=== PATIENT | male | born 2000 | race Hispanic/Latino ===

== ENCOUNTER 2022-11-21 18:47 | Emergency (ER) | payer BC, SELFPAY ==
[2022-11-21] VITALS (13 sets, daily range): BP systolic 141–181; BP diastolic 77–111; PULSE 85–118; RESP 16–31; TEMP 37.8; O2SAT 97–100
--- NOTE | ~2022-11-21 | XR_ITS ---
XR chest 2V DATE: 11/21/2022 19:34 INDICATION: Chest pain, shortness of breath TECHNIQUE: PA and lateral views COMPARISON: None FINDINGS: Normal heart size. No hilar or mediastinal enlargement. No pulmonary infiltrate or consolid ation, pleural effusion or pulmonary vascular congestion or pneumothorax. IMPRESSION: Negative Reviewed, dictated and finalized at location A. TAL INSPECTOR IMPRESSION: Negative
--- NOTE | 2022-11-21 18:55 | ECG_ITS ---
Measurements Intervals [place] Rate: 107 P: 39 ND: 180 QRS: 51 QRSD: 98 T: 34 QT: 319 QTc: 426 Interpretive Statements SINUS TACHYCARDIA OTHERWISE NORMAL ECG NO PREVIOUS ECG AVAILABLE FOR COMPARISON Electronically Signed On 11-21-2022 20:11:07 MAINTENANCE AND ENGINEERING MANAGER by Sam Owens M.D.
[2022-11-21 19:26] LABS: Basophils Absolute Auto 0.1 K/mm3 (0.0-0.1); Basophils Percent Auto 0.7 % (0.2-1.2); Eosinophils Absolute Auto 0.1 K/mm3 (0-0.3); Eosinophils Percent Auto 1.3 % (0-4.4); Hematocrit 46.2 % (42.0-52.0); Hemoglobin 15.6 g/dL (14.0-18.0); Immature Granulocyte Absolute 0.02 K/mm3 (0.00-0.031); Immature Granulocyte Percent A 0.2 % (0-0.5); Lymphocytes Absolute Auto 2.49 K/mm3 (0.9-3.2); Lymphocytes Percent Auto 27.7 % (18.3-44.2); Mean Corpuscular HGB Conc 33.8 g/dl (32-36); Mean Corpuscular Hemoglobin 28.4 pg (26-34); Mean Platelet Volume 10.2 fl (7.4-10.4); Monocytes Absolute Auto 0.7 K/mm3 (0.1-0.6); Monocytes Percent Auto 7.5 % (2.6-8.5); Neutrophils Absolute Auto 5.6 K/mm3 (1.3-6.7); Neutrophils Percent Auto 62.6 % (45.5-73.1); Platelet Count Result 278 k/mm3 (150-375); Red Cell Distribution Width 12.5 % (11.5-14.5)
[2022-11-21 19:36] LABS: Alanine Aminotransferase 49 U/L (6-50); Albumin Level 4.9 g/dL (3.5-5.1); Alkaline Phosphatase 78 U/L (38-126); Anion Gap 8 mmol/L (8-16); Aspartate Amino Transferase 38 U/L (17-59); Bilirubin,Total 0.5 mg/dL (0.2-1.3); Blood Urea Nitrogen 14 mg/dL (9-20); Calcium 9.3 mg/dL (8.4-10.2); Carbon Dioxide 30 mmol/L (22-30); Chloride 99 mmol/L (98-107); Estimated CRCL calculation 142 ml/min; Estimated Glomerular Filt Rate > 60; Glucose 99 mg/dL (65-110); Lipase 71 U/L (23-300); Potassium 3.9 mmol/L (3.4-5.0); Sodium 137 mmol/L (137-145)
[2022-11-21 19:47] LABS: Troponin I < 0.012 ng/mL (0.000-0.034)
[2022-11-21 20:00] LABS: INR 1.1; Partial Thromboplastin Time 29.8 SECONDS (22.3-36.8); Prothrombin Time 13.6 Seconds (11.1-14.7)
--- NOTE | 2022-11-21 21:48 | ED.CHESTPAIN ---
HPI - Chest Pain General Chief Complaint: Chest Pain Stated Complaint: chest pain Time Seen by Provider: 11/21/22 21:20 History of Present Illness HPI narrative: Patient is a 22-year-old male here for evaluation of chest pain and shortness of breath of the past 3 days. Patient states that he become short of breath when exerting himself. Also notes cough. Pain is a stabbing sensation, coming at random and lasting seconds at a time before resolving without intervention. Denies history of previous similar sensation. Wanted to be checked out because of his family history of cardiac disease. No leg swelling, fevers or chills, nausea or vomiting, abdominal pain, palpitations. Related Data Home Medications Medication Instructions Recorded Confirmed omeprazole 20 mg capsule,delayed 20 mg PO BID 01/13/22 01/13/22 release Allergies Allergy/AdvReac Type Severity Reaction Status Date / Time No Known Allergies Allergy Verified 01/13/22 14:38 Review of Systems Review of Systems: Gen: Denies fevers or chills Eyes: Denies eye pain or visual change ENT: Denies congestion Respiratory: Reports shortness of breath CV: Reports chest pain GI: Denies abdominal pain nausea, emesis or diarrhea : denies burning, urgency, frequency or hematuria Musculoskeletal: Denies back pain or muscle pain Neuro: Denies numbness, tingling, weakness or focal weakness Skin: Denies rash Except as documented, all other systems reviewed and negative [facility] Past Medical History Medical History Depression Family History Family History Father Hypertension Family history of cardiovascular disease Mother Family history of elevated blood lipids Social History Social History Second hand tobacco smoke exposure: No Alcohol intake: never Substance use: never Substance use type: does not use Course Vital Signs Vital signs: Vital Signs Temperature 100.0 F H 11/21/22 18:53 Pulse Rate 118 H 11/21/22 18:53 Respiratory Rate 18 11/21/22 18:53 Blood Pressure 158/111 H 11/21/22 18:53 Pulse Oximetry 100 11/21/22 18:53 Oxygen Delivery Room Air 11/21/22 18:53 Temperature 98.1 F 11/22/22 00:18 Pulse Rate 79 11/22/22 00:18 Respiratory Rate 18 11/22/22 00:18 Blood Pressure 110/74 11/22/22 00:18 Pulse Oximetry 98 11/22/22 00:18 Oxygen Delivery Room Air 11/21/22 18:53 MDM - Chest Pain MDM Narrative Medical decision making narrative: 22-year-old male here for evaluation of chest pain, shortness of breath over the past several days. Patient is nontoxic-appearing although he is tachycardic to 118 and does have a low-grade temp at 100.0 upon arrival to the ED. Patient did not know he had a fever and is asymptomatic from this. Heart lungs are clear to auscultation, no leg swelling on exam. COVID and flu are negative. EKG and troponin are nonischemic. Chest x-ray is clear. D-dimer is negative, doubt PE. Patient was given fluids and Tylenol in the ED with improvement of his symptoms and vital signs. Patient does have a history of anxiety which he thinks is making his symptoms worse. He likely has a viral syndrome as the underlying cause given his low-grade temp on arrival. He will be discharged home to follow-up with his primary care doctor, return precautions discussed and he voiced understanding. Lab Data 11/21/22 19:14 11/21/22 19:15 Labs: Lab Results 11/21/22 11/21/22 11/21/22 Range/Units 19:10 19:14 19:14 WBC 9.0 (4.5-10.0) K/mm3 RBC 5.50 (4.6-6.20) M/mm3 Hgb 15.6 (14.0-18.0) g/dL Hct 46.2 (42.0-52.0) % MCV 84.0 (80-100) fl MCH 28.4 (26-34) pg MCHC 33.8 (32-36) g/dl RDW 12.5 (11.5-14.5) % Plt Count 278 (150-375) k/mm3 MPV 10.2 (7.4-10.4
[2022-11-21 21:50] LABS: D Dimer 0.31 ug/mL (<0.48)
[2022-11-21] MEDS: SODIUM CHLORIDE 0.9% IV 1,000 ML 999 ML IV CONT (23:17)
[2022-11-21] MEDS: ACETAMINOPHEN 500 MG TABLET 1000 MG PO (23:41)
[2022-11-21 23:59] LABS: Influenza A QL RT-PCR Negative (Negative); Influenza B QL RT-PCR Negative (Negative); SARS-CoV-2 RNA PCR Negative
[2022-11-22] VITALS: PULSE 89; RESP 15; O2SAT 97
[2022-11-22 00:01] VITALS: BP 147/76; PULSE 83; RESP 25; O2SAT 96
[2022-11-22 00:18] VITALS: BP 110/74; PULSE 79; RESP 18; TEMP 36.7; O2SAT 98
== END 2022-11-22 00:20 | disposition home or self-care (01) ==
PROVIDERS: Emergency Medicine; Emergency Provider Physician Assistant; PCP Family Medicine
DX: B34.9 Viral infection, unspecified (principal); Z20.822 Contact with and (suspected) exposure to COVID-19; F41.9 Anxiety disorder, unspecified; R00.0 Tachycardia, unspecified
CPT/HCPCS: 36415; 71046; 80053; 83690; 84484; 85025; 85380; 85610; 85730; 87636; 93005; 96360; 99284; A9270; J7030

== ENCOUNTER 2024-11-11 14:08 | Emergency (ER) | payer BC, SELFPAY ==
[2024-11-11 14:17] VITALS: BP 150/94; PULSE 98; RESP 18; TEMP 36.4; O2SAT 100
--- NOTE | 2024-11-11 14:19 | ED_ITS ---
HPI - Ear Problem General Chief complaint: Ear Stated complaint: Ear wax removal Time Seen by Provider: 11/11/24 14:20 Source: patient Mode of arrival: ambulatory Limitations: no limitations History of Present Illness HPI Narrative: 24-year-old male presented for complaint of right ear is clogged. He states he needs the ear cleaned out. Denies tinnitus, dizziness, ear pain, nausea vomiting. Has attempted to use Debrox and hydrogen peroxide without relief. MD Complaint: ear pain Related Data Home Medications ?Medication ?Instructions ?Recorded ?Confirmed ?Last Taken ?Type omeprazole 20 mg capsule,delayed 20 mg PO BID 01/13/22 02/10/24 Unknown History release cetirizine 10 mg tablet (24Hour 10 mg PO DAILY 11/11/24 Unknown History Allergy) Allergies Allergy/AdvReac Type Severity Reaction Status Date / Time No Known Allergies Allergy Verified 02/10/24 09:15 Review of Systems Review of Systems: CONSTITUTIONAL: Denies malaise, chills, or fever. EYES: Denies visual changes, redness, or discharge. ENT: Denies rhinorrhea, congestion, sinus pain, and sore throat. Reports ear clogged CARDIOVASCULAR: Denies chest pain, palpitations, or edema. RESPIRATORY: Denies cough or dyspnea. GASTROINTESTINAL: Denies abdominal pain, nausea, vomiting, diarrhea SKIN: Denies rash or itching. MUSCULOSKELETAL: Denies myalgia. NEUROLOGIC: Denies headache. All systems reviewed & are unremarkable except as noted in HPI and below PMFSH Past Medical History Medical History Anxiety Sleep apnea Depression Family History Family History Father Hypertension Family history of cardiovascular disease Mother Family history of elevated blood lipids Social History Social History Smoking status: Never smoker Second hand tobacco smoke exposure: No Alcohol intake: never Substance use: never Substance use type: does not use Comments At time of signature, agree with nursing past medical, surgical, social and family history. There is no relevant family history pertinent to the presenting complaint Exam Narrative: GENERAL: Well-appearing EYES: PERRLA, conjunctivae clear ENT: Nares clear. Mucous membranes moist. Left TM pearly mireles with dull light reflex; Right TM unable to visualize due to cerumen impaction. no tragal tenderness. Oropharynx not erythematous without lesions. Tonsils not enlarged and without exudate, no drooling, no hoarseness, no trismus, uvula midline. NECK: Supple. No lymphadenopathy CHEST: Respirations even and nonlabored SKIN: Warm, dry, no rash. NEURO: Alert and oriented x3. PSYCH: Normal mood and affect Course Course Emergency Course: Patient is aware of diagnosis, understands and agrees to treatment plan. Anticipatory guidance given. Patient agrees to follow-up as directed and is aware of reasons to seek care at the emergency department. Portions of this record may have been created with voice recognition software Level of Care: Express Care Visit Vital Signs Vital signs: Vital Signs Temperature 97.6 F 11/11/24 14:17 Pulse Rate 98 11/11/24 14:17 Respiratory Rate 18 11/11/24 14:17 Blood Pressure 150/94 H 11/11/24 14:17 Pulse Oximetry 100 11/11/24 14:17 Oxygen Delivery Room Air 11/11/24 14:17 Temperature 97.6 F 11/11/24 14:17 Pulse Rate 98 11/11/24 14:17 Respiratory Rate 18 11/11/24 14:17 Blood Pressure 150/94 H 11/11/24 14:17 Pulse Oximetry 100 11/11/24 14:17 Oxygen Delivery Room Air 11/11/24 14:17 Reviewed Procedures Ear Wax Removal Right Ear: Ear Wax Removal Date: 11/11/24 Cerumenolytic Used: other (Equal parts warm water and hydrogen peroxide) Results: Re-examined: cerumen removed completely TM Examination: TM(s) intact, normal appearance Ear Canal Exam: atraumatic Patient Tolerated Procedure: well and no complications Technique: ear canal irrigated and ear canal curetted Medical Decision Making MDM Narrative Medical decision making narrative: Discussed physical exam findings consistent with cerumen impaction of the right ear, tolerated removal. Advised supportive measures and signs/symptoms to go to the ER. Patient is appropriate for outpatient treatment and follow-up. Differential Diagnosis Differential Diagnosis: Coronavirus, strep pharyngitis, allergic rhinitis, upper respiratory tract infection, sinusitis, rhinosinusitis, nasopharyngitis, viral pharyngitis, otitis media, otitis externa, eustachian tube dysfunction, foreign body, cerumen impaction. Vital Signs Vital Signs: Vital Signs Temperature 97.6 F 11/11/24 14:17 Pulse Rate 98 11/11/24 14:17 Respiratory Rate 18 11/11/24 14:17 Blood Pressure 150/94 H 11/11/24 14:17 Pulse Oximetry 100 11/11/24 14:17 Oxygen Delivery Room Air 11/11/24 14:17 Temperature 97.6 F 11/11/24 14:17 Pulse Rate 98 11/11/24 14:17 Respiratory Rate 18 11/11/24 14:17 Blood Pressure 150/94 H 11/11/24 14:17 Pulse Oximetry 100 11/11/24 14:17 Oxygen Delivery Room Air 11/11/24 14:17 Discharge Plan Discharge Clinical Impression: Cerumen impaction Qualifiers: Laterality: right Qualified Code(s): H61.21 - Impacted cerumen, right ear Patient Disposition: Home, Self-Care Condition: Stable Instructions: How to Use Ear Drops (ED) Additional Instructions: Please use a earwax softening agent such as [id number] Debrox or a mixture of 1 part hydrogen peroxide in 1 part warm water several times weekly to keep your earwax soft and prevent further impaction. Please follow-up with your primary care doctor if you develop new symptoms. If you have urgent concerns please go to the ER. Patient Language: Portuguese Prescriptions: No Action cetirizine [24Hour Allergy] 10 mg tablet 10 mg PO DAILY omeprazole 20 mg capsule,delayed release(DR/EC) 20 mg PO BID Follow-up/Referrals: Gail Stubbs MD [Primary Care Provider] - Time of Disposition: 14:51
== END 2024-11-11 15:00 | disposition home or self-care (01) ==
PROVIDERS: Emergency Provider Nurse Practitioner Family; PCP Family Medicine
DX: H61.21 Impacted cerumen, right ear (principal)
CPT/HCPCS: 69210; 99212; G0463

== ENCOUNTER 2025-01-23 15:47 | Emergency (ER) | payer BC, SELFPAY ==
--- NOTE | 2025-01-23 15:48 | ED_ITS ---
HPI - Dizziness General Chief Complaint: Dizziness Stated Complaint: Light headed/Right Arm Pain Time Seen by Provider: 01/23/25 15:48 Source: patient Mode of arrival: ambulatory Limitations: no limitations History of Present Illness HPI Narrative: Shaun is a 24 year old male patient presenting to the clinic today with c/o lightheadedness and right arm pain x 1 week. He report history of anxiety. Denies any chest pain or shortness of breath but does have intermittent lightheadedness and occasional paresthesias like pain in the right biceps area. Denies any fevers, chills, URI symptoms, or sore throat. History of high blood pressure, anxiety, GERD and depression. States he has recently over the past few days had had dosage changes on his amlodipine from 2.5 mg daily to 5 mg daily and had started Prozac but his symptoms occurred prior to these medication changes Related Data Home Medications ?Medication ?Instructions ?Recorded ?Confirmed ?Last Taken ?Type omeprazole 20 mg capsule,delayed 20 mg PO BID 01/13/22 01/23/25 Unknown History release cetirizine 10 mg tablet (24Hour 10 mg PO DAILY 11/11/24 01/23/25 Unknown History Allergy) fluoxetine 20 mg capsule 20 mg PO QPM 01/23/25 01/23/25 Unknown History Allergies Allergy/AdvReac Type Severity Reaction Status Date / Time No Known Allergies Allergy Verified 01/23/25 15:53 Review of Systems Review of Systems: Pertinent positives per HPI. Patient denies any fever, chills, rash, headache, visual changes, cough, shortness of breath, chest pain, palpitations, nausea, vomiting, diarrhea, constipation, abdominal pain, or any urinary issues. [facility] Past Medical History Medical History Anxiety Sleep apnea Depression Family History Family History Father Hypertension Family history of cardiovascular disease Mother Family history of elevated blood lipids Social History Social History Smoking status: Never smoker Second hand tobacco smoke exposure: No Alcohol intake: never Substance use: never Substance use type: does not use Comments At the time of my signature, I reviewed and agree with the nursing past medical, surgical, social, and family history. There is no relevant family history pertinent to the patient complaint. Exam Narrative: General: Well-developed, well nourished, in no apparent distress Head: Normocephalic, atraumatic Eyes: Pupils equally round and reactive to light bilaterally, EOM intact, sclera and conjunctive clear, no discharge, lids normal Ears: TMs intact and clear, ear canals clear, no drainage, grossly hearing normal. Nose: Nares patent, no discharge, no inflammation, no sinus tenderness. Mouth: Oropharynx without lesions or masses, good dentition, MMM. Tongue midline, even rise and fall of uvula Neck: Supple, trachea midline, no enlargement of anterior or posterior cervical nodes, no thyroid masses or goiter palpable. Cardio: Regular rate and rhythm, s1 and s2 normal, no murmur appreciated. Resp: Clear to auscultation bilaterally anteriorly and posteriorly, no rhonchi, rales, wheezing or rubs Musculoskeletal: No deformity, non-tender to palpation, grossly normal range of motion, muscle strength strong and equal, peripheral pulse strong, no edema, no cyanosis, normal gait and station Neuro: Alert and oriented x4 with normal speech, no focal deficits, cranial nerves I through XII intact, muscle strength 5 out of 5, sensation intact bilaterally, negative Romberg test Course Course Emergency Course: Portions of this record may have been created with voice recognition software. Level of Care: Express Care Visit Vital Signs Vital signs: Vital Signs Temperature 37.3 C 01/23/25 15:57 Pulse Rate 113 H 01/23/25 15:57 Respiratory Rate 01/23/25 15:57 Blood Pressure 157/77 H 01/23/25 15:57 Pulse Oximetry 100 01/23/25 15:57 Temperature 37.3 C 01/23/25 15:57 Pulse Rate 113 H 01/23/25 15:57 Respiratory Rate 01/23/25 15:57 Blood Pressure 157/77 H 01/23/25 15:57 Pulse Oximetry 100 01/23/25 15:57 Vital signs reviewed MDM - Dizziness MDM Narrative Medical decision making narrative: At the time of visit patient is resting comfortably on the exam table. Patient appears to be nontoxic. EKG: EKG shows sinus rhythm with sinus arrhythmia heart rate of 94 beats per minute. No ST elevation, depression, or T-wave inversion. Plan: I suspect patient likely has anxiety causing his symptoms. Would like to trial hydroxyzine to see if this helps alleviate his symptoms. Recommend going to the emergency room if his symptoms worsen or follow-up with his primary care doctor this week if symptoms persist. Supportive measures were discussed with the patient and they voiced understanding discharge instructions and agrees to treatment plan. Return precautions reviewed Differential Diagnosis Differential diagnosis: Likely adverse reaction to drug, benign paroxysmal positional vertigo, orthostatic hypotension, vertebral basilar insufficiency, cerebrovascular accident, acute vestibular neuronitis and transient cerebral ischemia ECG Data EKG #1: Attestation: I personally reviewed and interpreted this ECG as follows: ECG completion date: 01/23/25 ECG completion time: 16:13 Prior ECG tracings: not available for review Interpretation: EKG shows sinus rhythm with sinus arrhythmia. Heart rate is 94 beats per minute. MN interval is 163 milliseconds, QRS duration 95 milliseconds, QT-QTC is 330-381 milliseconds, P-R-T axis is 27 62 11 Discharge Plan Discharge Clinical Impression: Intermittent lightheadedness, Paresthesia of right upper extremity, Anxiety Patient Disposition: Home, Self-Care Condition: Stable Instructions: Antibiotic Form, Paresthesia (ED), Lightheadedness (ED), Anxiety (ED), Arm Pain (ED) Additional Instructions: EKG shows normal sinus rhythm with heart rate of 94 beats per minute I suspect you unlikely having her symptoms due to anxiety. Take Vistaril as prescribed Follow-up with your primary care doctor later this week or early next week Go to the emergency room if you develop chest pain, shortness of breath, dizziness, lethargy, weakness, visual changes, or confusion, or any other concerning symptoms Patient Language: Welsh Prescriptions: New hydroxyzine HCl 25 mg tablet 25 mg PO TID PRN (Reason: anxiety) 10 Days Qty: 30 0RF No Action cetirizine [24Hour Allergy] 10 mg tablet 10 mg PO DAILY fluoxetine 20 mg capsule 20 mg PO QPM omeprazole 20 mg capsule,delayed release(DR/EC) 20 mg PO BID amlodipine [Norvasc] 5 mg tablet 5 mg PO DAILY Qty: 30 0RF buspirone 10 mg tablet 10 mg PO TID PRN (Reason: anxiety) Qty: 60 0RF Follow-up/Referrals: PHYSICIAN,HVAC SHEET METAL INSTALLER HELPER [Primary Care Provider] - Time of Disposition: 16:29 Quality NIHSS Nursing Documentation ED NIHSS nursing documentation: reviewed/agree
[2025-01-23 15:57] VITALS: BP 157/77; PULSE 113; RESP 20; TEMP 37.3; O2SAT 100
--- NOTE | 2025-01-23 16:04 | ECG_ITS ---
Test Date: 2025-01-23 16:13:40 Measurements Intervals [place] Rate: 94 P: 27 [place]: 163 QRS: 62 QRSD: 95 T: 11 QT: 330 QTc: 413 Interpretive Statements SINUS RHYTHM WITH SINUS ARRHYTHMIA BORDERLINE ST-T WAVE ABNORMALITY- INFERIOR LEADS BASELINE ARTIFACT- II, III, V3 BORDERLINE ECG No previous ECG available for comparison Electronically Signed On 01-24-2025 11:18:08 ANALYTICAL RESEARCH CHEMIST by Jim Cheung D.O.
== END 2025-01-23 16:33 | disposition home or self-care (01) ==
PROVIDERS: Emergency Provider Nurse Practitioner Family
DX: R42 Dizziness and giddiness (principal); R20.2 Paresthesia of skin; I10 Essential (primary) hypertension; F41.9 Anxiety disorder, unspecified; F32.A Depression, unspecified; K21.9 Gastro-esophageal reflux disease without esophagitis
CPT/HCPCS: 93005; 99213; G0463

== ENCOUNTER 2025-03-07 07:12 | Emergency (ER) | payer BC, SELFPAY ==
[2025-03-07] VITALS (10 sets, daily range): BP systolic 105–151; BP diastolic 55–92; PULSE 65–95; RESP 16–25; TEMP 36.6–36.8; O2SAT 97–100
--- NOTE | ~2025-03-07 | CT_ITS ---
Non-contrast Head CT History: Headache Technique: Axial non-contrast imaging of the brain was performed. Dose reduction technique was used on this scan by utilizing automated exposure control and iterative reconstruction technique. The dose -length product (DLP) was 605.33 mGy-cm. Findings: There is no evidence of intracranial hemorrhage, mass lesion, or acute infarct. Brain par enchyma appears normal. The ventricles and subarachnoid spaces are normal in size. The calvarium ap pears normal. The visualized paranasal sinuses and mastoid air cells are clear. Impression: No significant abnormality seen. Reviewed, dictated and finalized at location . Impression: No significant abnormality seen.
--- NOTE | ~2025-03-07 | XR_ITS ---
XR chest 2V Ordering provider: Ivania Leavitt MD History: 24 years Male with . syncope . Comparison: November 21, 2022 FINDINGS: MEDIASTINUM: The cardiac silhouette is not enlarged. LUNGS: No infiltrates, effusions or pneumothorax. OTHER: No free air under the diaphragm. IMPRESSION: No acute cardiopulmonary pathology. Reviewed, dictated and finalized at location A.
--- NOTE | ~2025-03-07 | CT_ITS ---
Noncontrast CT scan of the cervical spine Technique: Multiple contiguous axial [address] images of the cervical spine were obtained and rec onstructed in 2D sagittal and coronal planes on the acquisition scanner. Dose reduction technique was used on this scan by utilizing automated exposure control, adjustment of the mA and/or kV according to patient size. The dose-length product (DLP) was 506.49 mGy-cm. Clinical History: Pain Findings: No fractures or dislocations. Unremarkable visualized bony structures. The intervertebral disc spaces are preserved. No prevertebral soft tissue swelling. Impression: No fracture or subluxation of the cervical spine. Reviewed, dictated and finalized at location . Impression: No fracture or subluxation of the cervical spine.
--- NOTE | ~2025-03-07 | CT_ITS ---
EXAMINATION: CTA chest PE protocol DATE: 03/07/2025 10:01 INDICATION: Chest pain. Syncope. TECHNIQUE: Computed tomography (CT) pulmonary angiogram of the chest was performed with 100 mL Omnipa que-350 intravenous contrast. Additional 3D reconstructions utilizing coronal maximum intensity proje ction (MIP) were performed. Automated exposure control and iterative reconstruction technique were em ployed. The dose-length product was 872.78 mGy-cm. COMPARISON: None FINDINGS: No pulmonary embolism. No pneumonia, pulmonary edema, pleural effusion or pneumothorax. Heart size is normal. No pericardial effusion. Thoracic aorta is normal in caliber with no dissection. No patholog ically enlarged thoracic lymphadenopathy. Bilateral gynecomastia. Small sliding-type hiatal hernia. N onspecific splenomegaly. Bones are unremarkable. IMPRESSION: 1. No pulmonary embolism or other acute cardiopulmonary disease. 2. Small sliding-type hiatal hernia. 2. Mild nonspecific splenomegaly which may be related to body habitus. Reviewed, dictated and finalized at location A.
--- OUTSIDE RECORDS SUMMARY | 2025-03-07 07:15 | XMS_ITS | Encounter Summary ---
Author Organization [facility] Address [facility] [place] [address] Care Team Providers Care Cake Washer Name Role Phone Julieta Mccray PATTERN STORAGE CLERK Primary Care Provider [phone] Reason for Visit * Reason Onset Date Comments Symptoms Of Head & Neck 03/06/2025 Encounter Details Date Type Department Care Team (Late st Contact Info) Description 03/06/2025 Telephone [facility] [place] [address] [place] [address] Julieta Mccray NP [address] [place] [address] Symptoms Of Head & Neck Social History Tobacco Use Types Packs/Day Years Used Date Smoking Tobacco: Never Passive Smoke Exposure: Never Smokeless Tobacco: Never Alcohol Use Standard Drinks/Week Comments Not Currently 1.7 (1 standard drink = 0.6 oz p ure alcohol) oa PHQ-2 Answer Date Recorded Patient Health Questionnaire-2 Score 5 01/18/2025 Sex and Gender Information Value Date Recorded Sex Assigned at Male 01/18/2025 8:55 AM MOLD CLAMPER Legal Sex Male 9:15 AM MOLD CLAMPER Gender Identity Male 01/18/2025 8:55 AM MOLD CLAMPER Sexual Orientation Straight 01/18/2025 8: 55 AM MOLD CLAMPER documented as of this encounter Progress Notes * Amalia Ventura MA - 03/06/2025 5:32 PM CDT Patient scheduled * Debby Deutsch - 03/06/2025 10:44 AM CDT Patient called and stated the he has been experiencing head and neck pain along with vomitting. He is wanting to talk to a nurse regarding this and wanting to know if he should be seen sooner than his scheduled appt 03/09. Please return call to patient to discuss documented in this encounter Plan of Treatment Upcoming Encounters Date Type Department Care Team (Late st Contact Info) Description 03/08/2025 2:00 PM CDT Office Visit [facility] [place] [address] [place] [address] Julieta Mccray, PATTERN STORAGE CLERK [address] [place] [address] documented as of this encounter Visit Diagnoses Not on filedocumented in this encounter Additional Health Concerns Assessment Noted Time PHQ-9 Depression Total Score: 15 025 10:01 AM MOLD CLAMPER documented as of this encounter Care Teams Cake Washer Relationship Specialty Start Date End Date Julieta cMcray NP [address] [place] [address] PCP - General NURSE PRACTITIONER 01/09/25 documented as of this encounter
--- OUTSIDE RECORDS SUMMARY | 2025-03-07 07:15 | XMS_ITS | Data Portability ---
Author Organization [facility] SI (11) Address [address] [place] [address] Care Team Providers Care Commercial Carpenter Name Role Phone RC BOCANEGRA Primary Care Provider RC BOCANEGRA Referring Provider [phone] Assessment No assessment recorded. Plan of Treatment Reminders Order Date Submit Date Provider Last Modified By Organization Details Last Modified Time Details Appointments None record ed. Lab None record ed. Referral None record ed. Procedures None record ed. Surgeries None record ed. Imaging None record ed. Medication Orders None record ed. Patient TargetsNo targets recorded. Patient InstructionsNo instructions recorded. Reason for Referral None Reported. Procedures Surgical History Date Name Laterality Status Provider Name and Address Organization Details Recorded Time 11/18/2021 Sleep Study completed Ghanshyam Lovell [facility] [place] 11/19/2021 15:59:05 Imaging Results None recorded. Procedure Notes None recorded. Medical Equipment None Reported. Medications Name Sig Start Date Stop Date Status Note LastModified by Organization Details LastModified Time omeprazole 20 mg capsule,delay ed release active Not Available Not Available N ot Available Vitals Date Recorded Body weight Body mass index (BMI) Body height Provider Name and Address Organization Details Last Updated DateTime 11/18/2021 646361.79 g 41.6 kg/m2 177.8 cm Darrion Newman [facility] [place] 11/18/2021 12:32:45 Social History Question Answer Notes LastModified by Organizat ion Details LastModified Time Describe Your Sleep Problem Wakes Up Tired/ Non Refershed Sleep No Matter How Many Hours Of Sleep. [email or web address] Information not available 10/30/2021 Have You Had A Sleep Study Before? No [email or web address] Information not available 10/30/2021 Do You Snore? Yes [email or web address] Information not available 10/30/2021 Has Anyone Ever Told You That You Stop Breathing In Your Sleep Or Do You Waking Up Gasping/choki ng? Yes Was Told Breaths Really Heavy In Sleep. Woke Up Gasping While He Had Pneumonia(bot h Not Common) [email or web address] Information not available 10/30/2021 Any Unusual Activity At Night? Yes Sleep Walk Sometimes But Not Regularly Does Sleep Talk Information not available 10/30/2021 Do Your Legs Bother You At Night? No Moves Alot At Night While Asleep. Information not available 10/30/2021 Do You Have Any Muscle Weakness With Emotion? Yes Only When He Laughs Get Light Headed. When He Gets Mad Sometimes Feels Numbness [email or web address] Information not available 10/30/2021 Sitting Quietly Do You Doze Off Unintentional ly? Yes Late @ Night While Watching Videos Or Something Like That [email or web address] Information not available 10/30/2021 Do You Fall Asleep While Driving? No [email or web address] Information not available 10/30/2021 Do You Require Special Assistance? No [email or web address] Information not available 10/30/2021 Are There Any Other Medical Concerns That We Should Be Aware Of? No [email or web address] Information not available 10/30/2021 Bedtime? 1 1 Am [email or web address] Information no t available 10/30/2021 Waketime? 9 9 Am [email or web address] Information no t available 10/30/2021 Are You On Oxygen? If So, # LPM O2 No [email or web address] Information not available 10/30/2021 Sex: Unknown Functional Status None recorded. Mental Status None recorded. Family History Nothing Reported. Medical History No medical history recorded. Past Encounters Encounter ID Performer Location Encounter Start Date Encounter Closed Date Diagnosis/Indication Diagnosis SNOMED-CT Code Diagnosis ICD10 Code Diagnosis Note [id number] MD TAPAN Corona, F.C.C.P. [id number] [phone] [place] [address] 11/18/2021 12:15:12 11/19/2021 15:43:48 Obstructive sleep apnea of adult 5318721013 103 G47.33 Health Concerns Section Related Observation LastModified by Organization Detai ls LastModified Time None Recorded Concern Status LastModified by Organization Details LastModified Time None Recorded Advance Directives Directive None Recorded Payers Encounter Date Sequence Insurance Name Policy Number Policy Nj Covered Member ID Nj Member ID Guarantor Name 11/18/2021 1 [employer] (POS) [id number] Soraida Avendano [id number] Shaun Jiang Notes Date Note Type Note Provider Name and Address Organization Details Recorded Time 11/18/2021 text/html HST SetupReporte d [email or web address] set upDemonstrated to patient how to set up Home Sleep Test Device. The patient was able to return demonstration with out difficulty.; The patient is returning the device the following morning. Aneesh Santos MD [facility] [id number] [address], [address] [place] 11/21/2021 11:16:22
--- OUTSIDE RECORDS SUMMARY | 2025-03-07 07:15 | XMS_ITS | Encounter Summary ---
Author Organization [facility] Address [facility] [place] [address] Care Team Providers Care Retail Stocker Name Role Phone Julieta Mccray E/M ENGINEER Primary Care Provider [phone] Encounter Details Date Type Department Care Team (Late st Contact Info) Description 02/02/2025 [employer] Message Enc [place] [address] [place] [address] [facility] results Social History Tobacco Use Types Packs/Day Years Used Date Smoking Tobacco: Never Passive Smoke Exposure: Never Smokeless Tobacco: Never Alcohol Use Standard Drinks/Week Comments Not Currently 1.7 (1 standard drink = 0.6 oz p ure alcohol) PHQ-2 Answer Date Recorded Patient Health Questionnaire-2 Score 5 01/18/2025 Sex and Gender Information Value Date Recorded Sex Assigned at Male 01/18/2025 8:55 AM MANAGER NEONATAL Legal Sex Male 9:15 AM MANAGER NEONATAL Gender Identity Male 01/18/2025 8:55 AM MANAGER NEONATAL Sexual Orientation Straight 01/18/2025 8: 55 AM MANAGER NEONATAL documented as of this encounter Plan of Treatment Upcoming Encounters Date Type Department Care Team (Late st Contact Info) Description 03/08/2025 2:00 PM CDT Office Visit [place] [address] [place], [place] [id number] Julieta Mccray, E/M ENGINEER [address] [place], [place] [id number] documented as of this encounter Visit Diagnoses Not on filedocumented in this encounter Additional Health Concerns Assessment Noted Time PHQ-9 Depression Total Score: 15 025 10:01 AM MANAGER NEONATAL documented as of this encounter Care Teams Retail Stocker Relationship Specialty Start Date End Date Julieta Mccray, E/M ENGINEER [address] [facility] [address] [place] [address] PCP - General NURSE PRACTITIONER 01/09/25 documented as of this encounter
--- OUTSIDE RECORDS SUMMARY | 2025-03-07 07:16 | XMS_ITS | Clinical Summary ---
Author Organization [facility] Address [address] [place] [address] Care Team Providers Care Collector Of Port Name Role Phone Julieta Mccray BIOINFORMATICIST Primary Care Provider Allergies No known active allergies Medications amLODIPine (NORVASC) 2.5 MG tablet Take 1 tablet (2.5 mg total) by mouth daily. 4 Active busPIRone (BUSPAR) 10 MG tablet Take 0.5 tablets (5 mg total) by mouth as needed. 5 Active FLUoxetine (PROZAC) 20 MG capsuleIndicat ions:LESTER (generalized anxiety disorder),[place] r depressive disorder, recurrent episode, moderate (CMS/HCC) TAKE 1 CAPSULE BY MOUTH EVERY DAY 90 capsule 1 5 Active FLUoxetine (PROZAC) 20 MG capsuleIndicat ions:LESTER (generalized anxiety disorder),[place] r depressive disorder, recurrent episode, moderate (CMS/HCC) Take 1 capsule (20 mg total) by mouth daily. 30 capsule 2 5 02/10/20 25 Discontinued Active Problems Problem Noted Date Diagnosed Date Primary hypertension 01/18/2025 Major depressive disorder, recurrent episode, mo derate 01/18/2025 LESTER (generalized anxiety disorder) 01/18/2025 Pain in left testicle 01/18/2025 History of suicide attempt 01/18/2025 MAU (obstructive sleep apnea) 01/18/2025 Gastroesophageal reflux disease without esophagi tis 01/18/2025 Encounters Date Type Department Care Team Description 03/06/2025 Telephone [facility] Multispecialty Care - [address] [place] [address] Julieta Mccray, BIOINFORMATICIST Symptoms Of Head & Neck 02/02/2025 MyChart Message Enc [facility] [place] [address] [address] [place] [address] [place], [facility] Provider lab results 02/01/2025 Telephone [facility] - [place] [address] [address] [place] [address] Julieta Mccray, BIOINFORMATICIST Lab Results 01/25/2025 8:00 AM COMPUTER SYSTEMS ADMINISTRATOR [facility] [place] [address] [facility] [address] [facility] [address] [place] [address] Julieta Mccray, BIOINFORMATICIST 01/25/2025 - 01/25/2025 11:59 PM COMPUTER SYSTEMS ADMINISTRATOR Hospital Encounter [facility] [address] [place] [address] Julieta Mccray, BIOINFORMATICIST Discharge Disposition: Home or Self Care (Routine Discharge) 01/25/2025 Travel 01/18/2025 8:40 AM COMPUTER SYSTEMS ADMINISTRATOR [facility] [place] [address] [place] [address] Julieta Mccray, BIOINFORMATICIST New Patient 01/18/2025 - 01/18/2025 11:59 PM COMPUTER SYSTEMS ADMINISTRATOR Hospital Encounter [facility] [address] [place] [address] Julieta Mccray, BIOINFORMATICIST Discharge Disposition: Home or Self Care (Routine Discharge) 01/18/2025 Travel from Last 3 Months Family History Medical History Relation Comments Anxiety Father Depression Father Heart Disease Father Hypertension Father Personality disorder Father Depression Mother Hypertension Mother Mental Health Mother Heart Disease Paternal Grandfather nicotine dependence Paternal Grandfather Relation Status Comments Father Mother Paternal Grandfather Social History Tobacco Use Types Packs/Day Years Used Date Smoking Tobacco: Never Passive Smoke Exposure: Never Smokeless Tobacco: Never Tobacco Cessation:Counseling Given: No Alcohol Use Standard Drinks/Week Comments Not Currently 1.7 (1 standard drink = 0.6 oz p ure alcohol) karoake nights thursdays PHQ-2 Answer Date Recorded Patient Health Questionnaire-2 Score 5 01/18/2025 Sex and Gender Information Value Date Recorded Sex Assigned at Male 01/18/2025 8:55 AM COMPUTER SYSTEMS ADMINISTRATOR Legal Sex Male 9:15 AM COMPUTER SYSTEMS ADMINISTRATOR Gender Identity Male 01/18/2025 8:55 AM COMPUTER SYSTEMS ADMINISTRATOR Sexual Orientation Straight 01/18/2025 8: 55 AM COMPUTER SYSTEMS ADMINISTRATOR Last Filed Vital Signs Vital Sign Reading Time Taken Comments Blood Pressure 158/84 01/18/2025 9:32 AM COMPUTER SYSTEMS ADMINISTRATOR Pulse 88 01/18/2025 9:32 AM COMPUTER SYSTEMS ADMINISTRATOR Temperature 36.8 C (98.3 F) 01/18/2025 8:55 AM COMPUTER SYSTEMS ADMINISTRATOR Respiratory Rate 19 01/18/2025 8:55 AM COMPUTER SYSTEMS ADMINISTRATOR Oxygen Saturation 100% 01/18/2025 8:55 AM COMPUTER SYSTEMS ADMINISTRATOR Inhaled Oxygen Concentration - - Weight 126.9 kg (279 lb 12.8 oz) 01/18/2025 8:55 AM COMPUTER SYSTEMS ADMINISTRATOR Height 175.3 cm (5' 9 ) 01/18/2025 8:55 AM COMPUTER SYSTEMS ADMINISTRATOR Body Mass Index 41.32 01/18/2025 8:55 AM COMPUTER SYSTEMS ADMINISTRATOR Plan of Treatment Upcoming Encounters Date Type Department Care Team (Late st Contact Info) Description 03/08/2025 2:00 PM CDT Office Visit [facility] Multispecialty Care - [place] [address] [place] [address] Julieta Mccray, BIOINFORMATICIST [address] [place] [address] Health Maintenance Due Date Last Done Comments Annual Physical 2003 HPV Vaccines (1 - Male 3-dose series) 2015 DTaP, Tdap and Td Vaccines (7 - Td or Tdap) 05/07/2020 05/07/2010, 04/15/2005, 10/15/2001, Additional history exists COVID-19 Vaccine ( - season) 2024 11/15/2021, 02/07/2021 Hepatitis B Vaccines Completed 04/19/2001, 2000, 2000 Pneumococcal Vaccine: Pediatrics (0 to 5 Years) and At-Risk Patients (6 to 64 Years) Completed 04/19/2001, 2000, 2000, Additional history exists Meningococcal Vaccine Completed 04/28/2017, 012 PHQ-2 (Physician [place]) Completed 01/18/2025 Hepatitis C Completed 01/25/2025 Meningococcal B Vaccine Aged Out No l onger eligible based on patient's age to complete this topic RSV Immunizations Under 20 Months Aged Out No longer eligible based on patient's age to complete this topic Procedures Procedure Name Priority Date/Time Associated Diagnosis Comments COLLECTION VENOUS BLOOD VENIPUNCTURE Routine 01/25/2025 8:11 AM COMPUTER SYSTEMS ADMINISTRATOR Screening for diabetes mellitus Need for hepatitis C screening test Routine general medical examination at a health care facility Primary hypertension THYROXINE, FREE (FT4) Routine 01/25/2025 7:58 AM COMPUTER SYSTEMS ADMINISTRATOR CBC W/DIFF AUTOMATED Routine 01/25/2025 7:58 AM COMPUTER SYSTEMS ADMINISTRATOR Primary hypertension Routine general medical examination at a health care facility COMPREHENSIVE METABOLIC PANEL Routine 01/25/2025 7:58 AM COMPUTER SYSTEMS ADMINISTRATOR Primary hypertension Routine general medical examination at a health care facility LIPID PANEL Routine 01/25/2025 7:58 AM COMPUTER SYSTEMS ADMINISTRATOR Routine general medical examination at a health care facility TSH W/REFLEX Routine 01/25/2025 7:58 AM COMPUTER SYSTEMS ADMINISTRATOR Routine general medical examination at a health care facility VITAMIN D, 25 OH Routine 01/25/2025 7:58 AM COMPUTER SYSTEMS ADMINISTRATOR Routine general medical examination at a health care facility HEPATITIS C ANTIBODY Routine 01/25/2025 7:58 AM COMPUTER SYSTEMS ADMINISTRATOR Need for hepatitis C screening test HEMOGLOBIN, GLYCOSYLATED Routine 01/25/2025 7:58 AM COMPUTER SYSTEMS ADMINISTRATOR Screening for diabetes mellitus CHLAM/GC/TRICHOMONAS PROFILE Routine 01/18/2025 9:51 AM COMPUTER SYSTEMS ADMINISTRATOR Screening examination for STI URINALYSIS, AUTO, COMPLETE Routine 01/18/2025 9:51 AM COMPUTER SYSTEMS ADMINISTRATOR Routine general medical examination at a health care facility from Last 3 Months Results * (ABNORMAL) TSH W/REFLEX (01/25/2025 7:58 AM COMPUTER SYSTEMS ADMINISTRATOR) TSH 3.776(H) 0.358 - 3.740 uIU/ML 01/25/2025 5:08 PM COMPUTER SYSTEMS ADMINISTRATOR [facility] 01/25/2025 7:58 AM COMPUTER SYSTEMS ADMINISTRATOR Julieta Mccray NP LABORATORY Final Resul t Performing Organization Address [facility] Co de Phone Number [address] [address], [place] [phone] * HEMOGLOBIN, GLYCOSYLATED (01/25/2025 7:58 AM COMPUTER SYSTEMS ADMINISTRATOR) HGB A1C 4.8 4.5 - 6.2 % 01/25/2025 4:14 PM COMPUTER SYSTEMS ADMINISTRATOR [facility] ESTIMATED AVG GLUCOSE 91 74 - 106 MG/DL 01/25/2025 4:14 PM COMPUTER SYSTEMS ADMINISTRATOR [facility] 01/25/2025 7:58 AM COMPUTER SYSTEMS ADMINISTRATOR Julieta Mccray NP LABORATORY Final Resul t Performing Organization Address City/[facility]/ZIP Co de Phone Number [address] [address], [place] [phone] * COMPREHENSIVE METABOLIC PANEL (01/25/2025 7:58 AM COMPUTER SYSTEMS ADMINISTRATOR) SODIUM S/P/B 141 136 - 145 MMOL/L 01/25/2025 5:08 PM COMPUTER SYSTEMS ADMINISTRATOR [facility] POTASSIUM S/P/B 4.4 3.5 - 5.1 MMOL/L 01/25/2025 5:08 PM COMPUTER SYSTEMS ADMINISTRATOR [facility] CHLORIDE S/P/B 103 98 - 107 MMOL/L 01/25/2025 5:08 PM [facility] CO2 27.0 21 - 32 MMOL/L 01/25/2025 5:08 PM [facility] GLUCOSE 94 70 - 99 MG/DL 01/25/2025 5:08 PM [facility] BUN 15 7 - 18 MG/DL 01/25/2025 5:08 PM [facility] CREATININE S/P/B 1.06 0.70 - 1.30 MG/DL 01/25/2025 5:08 PM [facility] CALCIUM S/P/B 9.6 8.4 - 10.5 MG/DL 01/25/2025 5:08 PM [facility] BILIRUBIN TOTAL S/P/B 0.3 0.2 - 1.0 MG/DL 01/25/2025 5:08 PM [facility] ALKALINE PHOSPHATASE S/P/B 83 45 - 115 U/L 01/25/2025 5:08 PM [facility] AST 15 15 - 37 U/L 01/25/2025 5:08 PM [facility] ALT 28 16 - 63 U/L 01/25/2025 5:08 PM [facility] TOTAL PROTEIN S/P/B 7.7 6.4 - 8.2 G/DL 01/25/2025 5:08 PM [facility] ALBUMIN S/P/B 4.2 3.4 - 5.0 G/DL 01/25/2025 5:08 PM [facility] ANION GAP 11.0 5 - 15 MMOL/L 01/25/2025 5:08 PM [facility] Comment:REFERENCE RANGE NOT ESTABLISHED OSMOLALITY (CALC) 293 MOSM/KG 025 5:08 PM [facility] Comment:REFERENCE RANGE NOT ESTABLISHED GFR ESTIMATE >90 >90 ML/MIN/1. 73 M2 01/25/2025 5:08 PM [facility] GFR NOTES GFR REFERENCE S: 01/25/2025 5:08 PM [facility] Comment: THE ESTIMATED GFR IS CALCULATED USING THE 2020 CKD-EPI EQUATION. THE FOLLOWING CATEGORIES FOR GRADING RENAL FUNCTION ARE RECOMMENDED BY THE INTERNATIONAL SOCIETY OF NEPHROLOGY (KDIGO 2012 CLINICAL PRACTICE GUIDELINE). G1,NORMAL OR HIGH: >89 ml/min/1.73 m2 G2,MILDLY DECREASED: 60-89 ml/min/1.73 m2 G3A,MILDLY TO MODERATELY DECREASED: 45-59 ml/min/1.73 m2 G3B,MODERATELY TO SEVERELY DECREASED: 30-44 ml/min/1.73 m2 G4,SEVERELY DECREASED: 15-29 ml/min/1.73 m2 G5,KIDNEY FAILURE: <15 ml/min/1.73 m2 01/25/2025 7:58 AM COMPUTER SYSTEMS ADMINISTRATOR us Julieta Mccray NP LABORATORY Final Resul t [facility] [address] [place] [address], * (ABNORMAL) LIPID PANEL (01/25/2025 7:58 AM COMPUTER SYSTEMS ADMINISTRATOR) CHOLESTEROL 158 <200 MG/DL 01/25/2025 5:08 PM [facility] TRIGLYCERIDES 156(H) <150 MG/DL 01/25/2025 5:08 PM [facility] HDL 39(L) >40 MG/DL 01/25/2025 5:08 PM [facility] LDL-C 88 <100 MG/DL 01/25/2025 5:08 PM [facility] VLDL CALCULATION 31(H) 5 - 28 MG/DL 01/25/2025 5:08 PM [facility] CHOL/HDL RATIO 4.1(H) 0.0 - 4.0 01/25/2025 5:08 PM [facility] LDL/HDL 2.3(H) 0.41 - 2.13 01/25/2025 5:08 PM COMPUTER SYSTEMS ADMINISTRATOR [facility] NON HDL CHOLESTEROL 119 <140 MG/DL 01/25/2025 5:08 PM COMPUTER SYSTEMS ADMINISTRATOR [facility] 01/25/2025 7:58 AM COMPUTER SYSTEMS ADMINISTRATOR Julieta Mccray NP LABORATORY Final Resul t Performing Organization Address City/[facility]/ZIP Co de Phone Number [facility] [address] [place] [address], [place] [phone] * HEPATITIS C ANTIBODY (01/25/2025 7:58 AM COMPUTER SYSTEMS ADMINISTRATOR) [facility] HEPATITIS C AB NON-REACTI VE NON-REACT HUEY 01/25/2025 7:37 PM COMPUTER SYSTEMS ADMINISTRATOR [facility] Comment: ANTIBODIES TO HCV NOT DETECTED. DOES NOT EXCLUDE THE POSSIBILITY OF EXPOSURE TO HCV. 01/25/2025 7:58 AM COMPUTER SYSTEMS ADMINISTRATOR Julieta Mccray NP LABORATORY Final Resul t Performing Organization Address City/[facility]/ZIP Co de Phone Number [facility] [address] [place] [address], [place] [phone] * (ABNORMAL) CBC W/DIFF AUTOMATED (01/25/2025 7:58 AM COMPUTER SYSTEMS ADMINISTRATOR) [facility] WBC 8.37 4.00 - 10.80 x10'3/uL 01/25/2025 2:40 PM COMPUTER SYSTEMS ADMINISTRATOR [facility] RBC 5.35 4.50 - 6.10 x10'6/uL 01/25/2025 2:40 PM COMPUTER SYSTEMS ADMINISTRATOR [facility] HGB 15.3 13.0 - 18.0 G/DL 01/25/2025 2:40 PM COMPUTER SYSTEMS ADMINISTRATOR [facility] HCT 45.1 37.0 - 52.0 % 01/25/2025 2:40 PM [facility] MCV 84.3 78.0 - 100.0 FL 01/25/2025 2:40 PM [facility] MCH 28.6 27.0 - 31.0 PG 01/25/2025 2:40 PM [facility] MCHC 33.9 33.0 - 36.0 G/DL 01/25/2025 2:40 PM [facility] RDW 12.2 11.5 - 14.5 % 01/25/2025 2:40 PM [facility] PLT 291 150 - 350 x10'3/uL 01/25/2025 2:40 PM [facility] MPV 11.1(H) 7.4 - 10.4 FL 01/25/2025 2:40 PM [facility] DIFFERENTIAL TYPE AUTOMATED DIFFERENTIAL 01/25/2025 2:40 PM [facility] NEUTROPHILS % 54.9 % 01/25/2025 2:40 PM [facility] LYMPHOCYTES % 33.1 % 01/25/2025 2:40 PM [facility] MONOCYTES % 9.8 % 01/25/2025 2:40 PM [facility] EOSINOPHILS % 1.4 % 01/25/2025 2:40 PM [facility] BASOPHILS % 0.6 % 01/25/2025 2:40 PM [facility] IMMATURE GRANS % 0.2 % 01/25/2025 2:40 PM [facility] ABS. NEUTROPHILS 4.59 1.60 - 8.30 x10'3/uL 01/25/2025 2:40 PM [facility] ABS. LYMPHOCYTES 2.77 0.80 - 4.70 x10'3/uL 01/25/2025 2:40 PM [facility] ABS. MONOCYTES 0.82 0.00 - 1.50 x10'3/uL 01/25/2025 2:40 PM COMPUTER SYSTEMS ADMINISTRATOR [facility] ABS. EOSINOPHILS 0.12 0.00 - 0.40 x10'3/uL 01/25/2025 2:40 PM COMPUTER SYSTEMS ADMINISTRATOR [facility] ABS. BASOPHILS 0.05 0.00 - 0.20 x10'3/uL 01/25/2025 2:40 PM COMPUTER SYSTEMS ADMINISTRATOR [facility] ABS. IMMATURE GRANULOCYTES 0.02 0.00 - 0.03 x10'3/uL 01/25/2025 2:40 PM COMPUTER SYSTEMS ADMINISTRATOR [facility] 01/25/2025 7:58 AM COMPUTER SYSTEMS ADMINISTRATOR us Julieta Mccray NP LABORATORY Final Resul t Performing Organization Address [facility] de Phone Number [address] [phone], * THYROXINE, FREE (FT4) (01/25/2025 7:58 AM COMPUTER SYSTEMS ADMINISTRATOR) FREE T4 1.18 0.76 - 1.46 NG/DL 01/25/2025 6:06 PM COMPUTER SYSTEMS ADMINISTRATOR [facility] 01/25/2025 7:58 AM COMPUTER SYSTEMS ADMINISTRATOR us Julieta Mccray NP LABORATORY Final Resul t Performing Organization Address [facility] Co de Phone Number [address] [phone], * (ABNORMAL) VITAMIN D, 25 OH (01/25/2025 7:58 AM COMPUTER SYSTEMS ADMINISTRATOR) VITAMIN D 25 HYDROXY TOTAL S/P/B 14.6(L) 30 - 100 NG/ML 01/25/2025 5:08 PM COMPUTER SYSTEMS ADMINISTRATOR [facility] Comment: DEFICIENT <20 INSUFFICIENT 20-30 SUFFICIENT 30-100 01/25/2025 7:58 AM COMPUTER SYSTEMS ADMINISTRATOR Julieta Mccary NP LABORATORY Final Resul t [facility] [address] [place] [address], [place] [phone] * CHLAM/GC/TRICHOMONAS PROFILE (01/18/2025 9:51 AM COMPUTER SYSTEMS ADMINISTRATOR) SPEC DESCRIPTION URINE 01/18/20 25 9:52 AM COMPUTER SYSTEMS ADMINISTRATOR [facility] CHLAMYDIA RNA TMA NEGATIVE NEGATIVE 025 2:16 PM COMPUTER SYSTEMS ADMINISTRATOR [facility] Comment:PERFORMED BY NUCLEIC ACID AMPLIFICATION N.GONORRHOEAE RNA TMA NEGATIVE NEGATIVE 01/20/2025 2:16 PM COMPUTER SYSTEMS ADMINISTRATOR [facility] Comment:PERFORMED BY NUCLEIC ACID AMPLIFICATION TRICHOMONAS NEGATIVE NEGATIVE 01/20/2025 2:16 PM COMPUTER SYSTEMS ADMINISTRATOR [facility] Comment:PERFORMED BY NUCLEIC ACID AMPLIFICATION URINE SPECIMEN / Unknown 01/18/2025 9:51 AM COMPUTER SYSTEMS ADMINISTRATOR Julieta Mccray NP MICROBIOLOGY - GENERAL ORDE [facility] Final Result [facility] [address] [place] [address], [place] [phone] * URINALYSIS (01/18/2025 9:51 AM COMPUTER SYSTEMS ADMINISTRATOR) COLOR (U) YELLOW 01/18/2025 3:30 PM COMPUTER SYSTEMS ADMINISTRATOR [facility] TRANSPARENCY CLEAR CLEAR 01/18/2025 3:30 PM COMPUTER SYSTEMS ADMINISTRATOR [facility] SPECIFIC GRAVITY (U) <1.005 1.003 - 1.040 01/18/2025 3:30 PM COMPUTER SYSTEMS ADMINISTRATOR [facility] U PH 6.0 5.0 - 9.0 01/18/2025 3:30 PM COMPUTER SYSTEMS ADMINISTRATOR [facility] PROTEIN RANDOM (U) NEGATIVE NEGATIVE 01/18/2025 3:30 PM COMPUTER SYSTEMS ADMINISTRATOR [facility] GLUCOSE (U) NEGATIVE NEGATIVE 01/18/2025 3:30 PM COMPUTER SYSTEMS ADMINISTRATOR [facility] KETONES MG/DL (U) NEGATIVE NEGATIVE 01/18/2025 3:30 PM COMPUTER SYSTEMS ADMINISTRATOR [facility] BILIRUBIN (U) NEGATIVE NEGATIVE 01/18/2025 3:30 PM COMPUTER SYSTEMS ADMINISTRATOR [facility] BLOOD (U) NEGATIVE NEGATIVE 01/18/2025 3:30 PM COMPUTER SYSTEMS ADMINISTRATOR [facility] UROBILINOGEN 0.2 0.0 - 2.0 EU/DL 01/18/2025 3:30 PM COMPUTER SYSTEMS ADMINISTRATOR [facility] NITRITES NEGATIVE NEGATIVE 01/18/2025 3:30 PM COMPUTER SYSTEMS ADMINISTRATOR [facility] LEUKOCYTES (U) NEGATIVE NEGATIVE 01/18/2025 3:30 PM COMPUTER SYSTEMS ADMINISTRATOR [facility] RBC/HPF 0-3 0 - 3 /HPF 01/18/2025 3:30 PM COMPUTER SYSTEMS ADMINISTRATOR [facility] WBC/HPF 0-3 0 - 3 /HPF 01/18/2025 3:30 PM COMPUTER SYSTEMS ADMINISTRATOR [facility] EPI/HPF 0-3 /HPF 01/18/2025 3:30 PM COMPUTER SYSTEMS ADMINISTRATOR [facility] BACTERIA (U) NONE SEEN NONE SEEN 01/18/2025 3:30 PM COMPUTER SYSTEMS ADMINISTRATOR [facility] URINE SPECIMEN OBTAINED BY CLEAN CATCH PROCEDURE / Unknown 01/18/2025 9:51 AM COMPUTER SYSTEMS ADMINISTRATOR us Julieta Mccray NP URINE ORDERABLES Final Resu lt [facility] [address] [place] [address], [place] [phone] from Last 3 Months Insurance [facility] Care Teams Collector Of Port Relationship Specialty Start Date End Date Julieta Mccray, MELANIA [address] [place] [address] PCP - General NURSE PRACTITIONER 01/09/25
--- NOTE | 2025-03-07 07:27 | ECG_ITS ---
Test Date: 2025-03-07 07:35:42 Measurements Intervals [place] Rate: 90 P: 7 VA: 171 QRS: 64 QRSD: 91 T: 11 QT: 318 QTc: 391 Interpretive Statements SINUS RHYTHM BASELINE ARTIFACT- I, II, III, AVR, AVL, AVF, V1, V3-V4 NORMAL ECG Compared to ECG 01/23/2025 16:13:40 Sinus arrhythmia no longer present Electronically Signed On 03-07-2025 08:07:53 CDT by Jim Cheung D.O.
[2025-03-07 07:53] LABS: Basophils Absolute Auto 0.1 K/mm3 (0.0-0.1); Basophils Percent Auto 0.7 % (0.2-1.2); Eosinophils Absolute Auto 0.1 K/mm3 (0-0.3); Hematocrit 42.4 % (42.0-52.0); Hemoglobin 14.3 g/dL (14.0-18.0); Immature Granulocyte Absolute 0.01 K/mm3 (0.00-0.031); Immature Granulocyte Percent A 0.1 % (0-0.5); Lymphocytes Absolute Auto 1.82 K/mm3 (0.9-3.2); Lymphocytes Percent Auto 24.8 % (18.3-44.2); Mean Corpuscular HGB Conc 33.7 g/dl (32-36); Mean Corpuscular Hemoglobin 28.5 pg (26-34); Mean Corpuscular Volume 84.5 fl (80-100); Mean Platelet Volume 10.2 fl (7.4-10.4); Monocytes Absolute Auto 1.1 K/mm3 (0.1-0.6); Monocytes Percent Auto 14.9 % (2.6-8.5); Neutrophils Absolute Auto 4.3 K/mm3 (1.3-6.7); Neutrophils Percent Auto 58.5 % (45.5-73.1); Platelet Count Result 165 k/mm3 (150-375); Red Blood Count 5.02 M/mm3 (4.6-6.20); Red Cell Distribution Width 12.6 % (11.5-14.5); White Blood Count 7.3 K/mm3 (4.5-10.0)
--- OUTSIDE RECORDS SUMMARY | 2025-03-07 07:59 | XMS_ITS | Encounter Summary ---
Author Organization [facility] Address Counts include 234 beds at the [facility] [place] [address] Care Team Providers Care Bladder Changer Name Role Phone Julieta Mccray CLINICAL SCIENCE LIAISON Primary Care Provider [phone] Reason for Visit * Reason Onset Date Comments Symptoms Of Head & Neck 03/06/2025 Encounter Details Date Type Department Care Team (Late st Contact Info) Description 03/06/2025 Telephone [facility] Medical [facility] Multispecialty Care - [place] [address] [place] [address] Julieta Mccray NP [address] [place] [address] Symptoms Of Head & Neck [...] Sex Assigned at Male 01/18/2025 8:55 AM GEAR CUTTER Legal Sex Male 9:15 AM GEAR CUTTER Gender Identity Male 01/18/2025 8:55 AM GEAR CUTTER Sexual Orientation Straight 01/18/2025 8: 55 AM GEAR CUTTER documented as of this encounter Progress Notes [...] Description 03/08/2025 2:00 PM CDT Office Visit [facility] Multispecialty Care - [place] [address] [place] [address] Julieta Mccray, CLINICAL SCIENCE LIAISON [address] [place] [address] documented as of this encounter Visit Diagnoses Not on filedocumented in this encounter Additional Health Concerns Assessment Noted Time PHQ-9 Depression Total Score: 15 025 10:01 AM GEAR CUTTER documented as of this encounter Care Teams Bladder Changer Relationship Specialty Start Date End Date Julieta Mccray NP [address] [place] [address] PCP - General NURSE PRACTITIONER 01/09/25 documented as of this encounter
--- OUTSIDE RECORDS SUMMARY | 2025-03-07 07:59 | XMS_ITS | Encounter Summary ---
Author Organization [facility] Address Critical access hospital[address] [place] [address] Care Team Providers Care Agricultural Services Director Name Role Phone Julieta Mccray CHILDREN TEACHER Primary Care Provider [phone] Encounter Details Date Type Department Care Team (Late st Contact Info) Description 02/02/2025 [place] Message Enc [place] [address] [place] [address] [facility] Social History Tobacco [...] Sex Assigned at Male 01/18/2025 8:55 AM LAND SURVEYOR MANAGER Legal Sex Male 9:15 AM LAND SURVEYOR MANAGER Gender Identity Male 01/18/2025 8:55 AM LAND SURVEYOR MANAGER Sexual Orientation Straight 01/18/2025 8: 55 AM LAND SURVEYOR MANAGER documented as of this encounter Plan of Treatment Upcoming Encounters Date Type Department Care Team (Late st Contact Info) Description 03/08/2025 2:00 PM CDT Office Visit [place] [address] [place], [place] [id number] Julieta Mccray, CHILDREN TEACHER [address] [place], [place] [id number] documented as of this encounter Visit Diagnoses Not on filedocumented in this encounter Additional Health Concerns Assessment Noted Time PHQ-9 Depression Total Score: 15 025 10:01 AM LAND SURVEYOR MANAGER documented as of this encounter Care Teams Agricultural Services Director Relationship Specialty Start Date End Date Julieta Mccray, CHILDREN TEACHER [address] [facility] [address] [place] [address] PCP - General NURSE PRACTITIONER 01/09/25 documented as of this encounter
--- OUTSIDE RECORDS SUMMARY | 2025-03-07 07:59 | XMS_ITS | Clinical Summary ---
Author Organization [facility] Address [address] [place] [address] Care Team Providers Care Engineering Patternmaker Name Role Phone Julieta Mccray STOGIE PACKER Primary Care Provider Allergies No known active [...] Type Department Care Team Description 03/06/2025 Telephone [facility] Medical Group Multispecialty Care - [address] [place] [address] Julieta Mccray, STOGIE PACKER Symptoms Of Head & Neck 02/02/2025 MyChart Message Enc [facility] [place] [address] [place] [address] [place], [facility] Provider lab results 02/01/2025 Telephone [facility] - [place] [address] [place] [address] Julieta Mccray, STOGIE PACKER Lab Results 01/25/2025 8:00 AM HOLLOW HANDLE BENCH WORKER [facility] [place] [address] [place] [address] Julieta Mccray, STOGIE PACKER 01/25/2025 - 01/25/2025 11:59 PM HOLLOW HANDLE BENCH WORKER Hospital Encounter [facility] [address] [place] [address] Julieta Mccray, STOGIE PACKER Discharge Disposition: Home or Self Care (Routine Discharge) 01/25/2025 Travel 01/18/2025 8:40 AM HOLLOW HANDLE BENCH WORKER [facility] [place] [address] [place] [address] Julieta Mccray, STOGIE PACKER New Patient 01/18/2025 - 01/18/2025 11:59 PM HOLLOW HANDLE BENCH WORKER Hospital Encounter [facility] [address] [place] [address] Julieta Mccray, STOGIE PACKER Discharge Disposition: Home or Self Care (Routine [...] Sex Assigned at Male 01/18/2025 8:55 AM HOLLOW HANDLE BENCH WORKER Legal Sex Male 9:15 AM HOLLOW HANDLE BENCH WORKER Gender Identity Male 01/18/2025 8:55 AM HOLLOW HANDLE BENCH WORKER Sexual Orientation Straight 01/18/2025 8: 55 AM HOLLOW HANDLE BENCH WORKER Last Filed Vital Signs Vital Sign Reading Time Taken Comments Blood Pressure 158/84 01/18/2025 9:32 AM HOLLOW HANDLE BENCH WORKER Pulse 88 01/18/2025 9:32 AM HOLLOW HANDLE BENCH WORKER Temperature 36.8 C (98.3 F) 01/18/2025 8:55 AM HOLLOW HANDLE BENCH WORKER Respiratory Rate 19 01/18/2025 8:55 AM HOLLOW HANDLE BENCH WORKER Oxygen Saturation 100% 01/18/2025 8:55 AM HOLLOW HANDLE BENCH WORKER Inhaled Oxygen Concentration - - Weight 126.9 kg (279 lb 12.8 oz) 01/18/2025 8:55 AM HOLLOW HANDLE BENCH WORKER Height 175.3 cm (5' 9 ) 01/18/2025 8:55 AM HOLLOW HANDLE BENCH WORKER Body Mass Index 41.32 01/18/2025 8:55 AM HOLLOW HANDLE BENCH WORKER Plan of Treatment Upcoming Encounters Date Type Department Care Team (Late st Contact Info) Description 03/08/2025 2:00 PM CDT Office Visit [facility] Medical Group Multispecialty Care - [place] [address] [place] [address] Julieta Mccray, STOGIE PACKER [address] [place] [address] Health Maintenance Due Date Last Done Comments [...] Meningococcal Vaccine Completed 04/28/2017, 012 PHQ-2 (Physician [place]) Completed 01/18/2025 Hepatitis C Completed 01/25/2025 Meningococcal B Vaccine Aged Out No l onger eligible based on patient's age to complete this topic RSV Immunizations Under 20 Months Aged Out No longer eligible based on patient's age to complete this topic Procedures Procedure Name Priority Date/Time Associated Diagnosis Comments COLLECTION VENOUS BLOOD VENIPUNCTURE Routine 01/25/2025 8:11 AM HOLLOW HANDLE BENCH WORKER Screening for diabetes mellitus Need for hepatitis C screening test Routine general medical examination at a health care facility Primary hypertension THYROXINE, FREE (FT4) Routine 01/25/2025 7:58 AM HOLLOW HANDLE BENCH WORKER CBC W/DIFF AUTOMATED Routine 01/25/2025 7:58 AM HOLLOW HANDLE BENCH WORKER Primary hypertension Routine general medical examination at a health care facility COMPREHENSIVE METABOLIC PANEL Routine 01/25/2025 7:58 AM HOLLOW HANDLE BENCH WORKER Primary hypertension Routine general medical examination at a health care facility LIPID PANEL Routine 01/25/2025 7:58 AM HOLLOW HANDLE BENCH WORKER Routine general medical examination at a health care facility TSH W/REFLEX Routine 01/25/2025 7:58 AM HOLLOW HANDLE BENCH WORKER Routine general medical examination at a health care facility VITAMIN D, 25 OH Routine 01/25/2025 7:58 AM HOLLOW HANDLE BENCH WORKER Routine general medical examination at a health care facility HEPATITIS C ANTIBODY Routine 01/25/2025 7:58 AM HOLLOW HANDLE BENCH WORKER Need for hepatitis C screening test HEMOGLOBIN, GLYCOSYLATED Routine 01/25/2025 7:58 AM HOLLOW HANDLE BENCH WORKER Screening for diabetes mellitus CHLAM/GC/TRICHOMONAS PROFILE Routine 01/18/2025 9:51 AM HOLLOW HANDLE BENCH WORKER Screening examination for STI URINALYSIS, AUTO, COMPLETE Routine 01/18/2025 9:51 AM HOLLOW HANDLE BENCH WORKER Routine general medical examination at a health care facility from Last 3 Months Results * (ABNORMAL) TSH W/REFLEX (01/25/2025 7:58 AM HOLLOW HANDLE BENCH WORKER) TSH 3.776(H) 0.358 - 3.740 uIU/ML 01/25/2025 5:08 PM HOLLOW HANDLE BENCH WORKER [facility] 01/25/2025 7:58 AM HOLLOW HANDLE BENCH WORKER Julieta Mccray NP LABORATORY Final Resul t Performing Organization Address [facility] Co de Phone Number [address] [address], [place] [phone] * HEMOGLOBIN, GLYCOSYLATED (01/25/2025 7:58 AM HOLLOW HANDLE BENCH WORKER) HGB A1C 4.8 4.5 - 6.2 % 01/25/2025 4:14 PM HOLLOW HANDLE BENCH WORKER [facility] ESTIMATED AVG GLUCOSE 91 74 - 106 MG/DL 01/25/2025 4:14 PM HOLLOW HANDLE BENCH WORKER [facility] 01/25/2025 7:58 AM HOLLOW HANDLE BENCH WORKER Julieta Mccray NP LABORATORY Final Resul t Performing Organization Address City/[facility]/ZIP Co de Phone Number [address] [address], [place] [phone] * COMPREHENSIVE METABOLIC PANEL (01/25/2025 7:58 AM HOLLOW HANDLE BENCH WORKER) SODIUM S/P/B 141 136 - 145 MMOL/L 01/25/2025 5:08 PM HOLLOW HANDLE BENCH WORKER [facility] POTASSIUM S/P/B 4.4 3.5 - 5.1 MMOL/L 01/25/2025 5:08 PM HOLLOW HANDLE BENCH WORKER [facility] CHLORIDE S/P/B 103 98 - 107 MMOL/L 01/25/2025 5:08 PM [facility] CO2 27.0 21 - 32 MMOL/L 01/25/2025 5:08 PM [facility] GLUCOSE 94 70 - 99 MG/DL 01/25/2025 5:08 PM [facility] BUN 15 7 - 18 MG/DL 01/25/2025 5:08 PM [facility] CREATININE S/P/B 1.06 0.70 - 1.30 MG/DL 01/25/2025 5:08 PM [facility] CALCIUM S/P/B 9.6 8.4 - 10.5 MG/DL 01/25/2025 5:08 PM [facility] BILIRUBIN TOTAL S/P/B 0.3 0.2 - 1.0 MG/DL 01/25/2025 5:08 PM [facility] ALKALINE PHOSPHATASE S/P/B 83 45 - 115 U/L 01/25/2025 5:08 PM [facility] AST 15 15 - 37 U/L 01/25/2025 5:08 PM [facility] ALT 28 16 - 63 U/L 01/25/2025 5:08 PM [facility] TOTAL PROTEIN S/P/B 7.7 6.4 - 8.2 G/DL 01/25/2025 5:08 PM [facility] ALBUMIN S/P/B 4.2 3.4 - 5.0 G/DL 01/25/2025 5:08 PM [facility] ANION GAP 11.0 5 - 15 MMOL/L 01/25/2025 5:08 PM [facility] Comment:REFERENCE RANGE NOT ESTABLISHED OSMOLALITY (CALC) 293 MOSM/KG 025 5:08 PM [facility] Comment:REFERENCE RANGE NOT ESTABLISHED GFR ESTIMATE >90 >90 ML/MIN/1. 73 M2 01/25/2025 5:08 PM [facility] GFR NOTES GFR REFERENCE S: 01/25/2025 5:08 PM [facility] Comment: THE ESTIMATED GFR IS CALCULATED [...] FAILURE: <15 ml/min/1.73 m2 01/25/2025 7:58 AM HOLLOW HANDLE BENCH WORKER [place] Julieta Mccray NP LABORATORY Final Resul t [facility] [address] [place] [address], * (ABNORMAL) LIPID PANEL (01/25/2025 7:58 AM HOLLOW HANDLE BENCH WORKER) CHOLESTEROL 158 <200 MG/DL 01/25/2025 5:08 PM [facility] TRIGLYCERIDES 156(H) <150 MG/DL 01/25/2025 5:08 PM [facility] HDL 39(L) >40 MG/DL 01/25/2025 5:08 PM [facility] LDL-C 88 <100 MG/DL 01/25/2025 5:08 PM [facility] VLDL CALCULATION 31(H) 5 - 28 MG/DL 01/25/2025 5:08 PM [facility] CHOL/HDL RATIO 4.1(H) 0.0 - 4.0 01/25/2025 5:08 PM [facility] LDL/HDL 2.3(H) 0.41 - 2.13 01/25/2025 5:08 PM HOLLOW HANDLE BENCH WORKER [facility] NON HDL CHOLESTEROL 119 <140 MG/DL 01/25/2025 5:08 PM HOLLOW HANDLE BENCH WORKER [facility] 01/25/2025 7:58 AM HOLLOW HANDLE BENCH WORKER Julieta Mccray NP LABORATORY Final Resul t Performing Organization Address City/[facility]/ZIP Co de Phone Number [facility] [address] [place] [address], [place] [phone] * HEPATITIS C ANTIBODY (01/25/2025 7:58 AM HOLLOW HANDLE BENCH WORKER) [facility] HEPATITIS C AB NON-REACTI VE NON-REACT HUEY 01/25/2025 7:37 PM HOLLOW HANDLE BENCH WORKER [facility] Comment: ANTIBODIES TO HCV NOT DETECTED. DOES NOT EXCLUDE THE POSSIBILITY OF EXPOSURE TO HCV. 01/25/2025 7:58 AM HOLLOW HANDLE BENCH WORKER Julieta Mccray NP LABORATORY Final Resul t Performing Organization Address City/[facility]/ZIP Co de Phone Number [facility] [address] [place] [address], [place] [phone] * (ABNORMAL) CBC W/DIFF AUTOMATED (01/25/2025 7:58 AM HOLLOW HANDLE BENCH WORKER) [facility] WBC 8.37 4.00 - 10.80 x10'3/uL 01/25/2025 2:40 PM HOLLOW HANDLE BENCH WORKER [facility] RBC 5.35 4.50 - 6.10 x10'6/uL 01/25/2025 2:40 PM HOLLOW HANDLE BENCH WORKER [facility] HGB 15.3 13.0 - 18.0 G/DL 01/25/2025 2:40 PM HOLLOW HANDLE BENCH WORKER [facility] HCT 45.1 37.0 - 52.0 % 01/25/2025 2:40 PM [facility] MCV 84.3 78.0 - 100.0 FL 01/25/2025 2:40 PM [facility] MCH 28.6 27.0 - 31.0 PG 01/25/2025 2:40 PM [facility] MCHC 33.9 33.0 - 36.0 G/DL 01/25/2025 2:40 PM [facility] RDW 12.2 11.5 - 14.5 % 01/25/2025 2:40 PM [facility] PLT 291 150 - 350 x10'3/uL 01/25/2025 2:40 PM [facility] MPV 11.1(H) 7.4 - 10.4 FL 01/25/2025 2:40 PM [facility] DIFFERENTIAL TYPE AUTOMATED DIFFERENTIAL 01/25/2025 2:40 PM [facility] NEUTROPHILS % 54.9 % 01/25/2025 2:40 PM [facility] LYMPHOCYTES % 33.1 % 01/25/2025 2:40 PM [facility] MONOCYTES % 9.8 % 01/25/2025 2:40 PM [facility] EOSINOPHILS % 1.4 % 01/25/2025 2:40 PM [facility] BASOPHILS % 0.6 % 01/25/2025 2:40 PM [facility] IMMATURE GRANS % 0.2 % 01/25/2025 2:40 PM [facility] ABS. NEUTROPHILS 4.59 1.60 - 8.30 x10'3/uL 01/25/2025 2:40 PM [facility] ABS. LYMPHOCYTES 2.77 0.80 - 4.70 x10'3/uL 01/25/2025 2:40 PM [facility] ABS. MONOCYTES 0.82 0.00 - 1.50 x10'3/uL 01/25/2025 2:40 PM HOLLOW HANDLE BENCH WORKER [facility] ABS. EOSINOPHILS 0.12 0.00 - 0.40 x10'3/uL 01/25/2025 2:40 PM HOLLOW HANDLE BENCH WORKER [facility] ABS. BASOPHILS 0.05 0.00 - 0.20 x10'3/uL 01/25/2025 2:40 PM HOLLOW HANDLE BENCH WORKER [facility] ABS. IMMATURE GRANULOCYTES 0.02 0.00 - 0.03 x10'3/uL 01/25/2025 2:40 PM HOLLOW HANDLE BENCH WORKER [facility] 01/25/2025 7:58 AM HOLLOW HANDLE BENCH WORKER us Julieta Mccray NP LABORATORY Final Resul t Performing Organization Address [facility] de Phone Number [address] [phone], * THYROXINE, FREE (FT4) (01/25/2025 7:58 AM HOLLOW HANDLE BENCH WORKER) FREE T4 1.18 0.76 - 1.46 NG/DL 01/25/2025 6:06 PM HOLLOW HANDLE BENCH WORKER [facility] 01/25/2025 7:58 AM HOLLOW HANDLE BENCH WORKER us Julieta Mccray NP LABORATORY Final Resul t Performing Organization Address [facility] Co de Phone Number [address] [address], * (ABNORMAL) VITAMIN D, 25 OH (01/25/2025 7:58 AM HOLLOW HANDLE BENCH WORKER) VITAMIN D 25 HYDROXY TOTAL S/P/B 14.6(L) 30 - 100 NG/ML 01/25/2025 5:08 PM HOLLOW HANDLE BENCH WORKER [facility] Comment: DEFICIENT <20 INSUFFICIENT 20-30 SUFFICIENT 30-100 01/25/2025 7:58 AM HOLLOW HANDLE BENCH WORKER Julieta Mccray NP LABORATORY Final Resul t [facility] [address] [place] [address], [place] [phone] * CHLAM/GC/TRICHOMONAS PROFILE (01/18/2025 9:51 AM HOLLOW HANDLE BENCH WORKER) SPEC DESCRIPTION URINE 01/18/20 25 9:52 AM HOLLOW HANDLE BENCH WORKER [facility] CHLAMYDIA RNA TMA NEGATIVE NEGATIVE 025 2:16 PM HOLLOW HANDLE BENCH WORKER [facility] Comment:PERFORMED BY NUCLEIC ACID AMPLIFICATION N.GONORRHOEAE RNA TMA NEGATIVE NEGATIVE 01/20/2025 2:16 PM HOLLOW HANDLE BENCH WORKER [facility] Comment:PERFORMED BY NUCLEIC ACID AMPLIFICATION TRICHOMONAS NEGATIVE NEGATIVE 01/20/2025 2:16 PM HOLLOW HANDLE BENCH WORKER [facility] Comment:PERFORMED BY NUCLEIC ACID AMPLIFICATION URINE SPECIMEN / Unknown 01/18/2025 9:51 AM HOLLOW HANDLE BENCH WORKER Julieta Mccray NP MICROBIOLOGY - GENERAL ORDE [facility] Final Result [facility] [address] [place] [address], [place] [phone] * URINALYSIS (01/18/2025 9:51 AM HOLLOW HANDLE BENCH WORKER) COLOR (U) YELLOW 01/18/2025 3:30 PM HOLLOW HANDLE BENCH WORKER [facility] TRANSPARENCY CLEAR CLEAR 01/18/2025 3:30 PM HOLLOW HANDLE BENCH WORKER [facility] SPECIFIC GRAVITY (U) <1.005 1.003 - 1.040 01/18/2025 3:30 PM HOLLOW HANDLE BENCH WORKER [facility] U PH 6.0 5.0 - 9.0 01/18/2025 3:30 PM HOLLOW HANDLE BENCH WORKER [facility] PROTEIN RANDOM (U) NEGATIVE NEGATIVE 01/18/2025 3:30 PM HOLLOW HANDLE BENCH WORKER [facility] GLUCOSE (U) NEGATIVE NEGATIVE 01/18/2025 3:30 PM HOLLOW HANDLE BENCH WORKER [facility] KETONES MG/DL (U) NEGATIVE NEGATIVE 01/18/2025 3:30 PM HOLLOW HANDLE BENCH WORKER [facility] BILIRUBIN (U) NEGATIVE NEGATIVE 01/18/2025 3:30 PM HOLLOW HANDLE BENCH WORKER [facility] BLOOD (U) NEGATIVE NEGATIVE 01/18/2025 3:30 PM HOLLOW HANDLE BENCH WORKER [facility] UROBILINOGEN 0.2 0.0 - 2.0 EU/DL 01/18/2025 3:30 PM HOLLOW HANDLE BENCH WORKER [facility] NITRITES NEGATIVE NEGATIVE 01/18/2025 3:30 PM HOLLOW HANDLE BENCH WORKER [facility] LEUKOCYTES (U) NEGATIVE NEGATIVE 01/18/2025 3:30 PM HOLLOW HANDLE BENCH WORKER [facility] RBC/HPF 0-3 0 - 3 /HPF 01/18/2025 3:30 PM HOLLOW HANDLE BENCH WORKER [facility] WBC/HPF 0-3 0 - 3 /HPF 01/18/2025 3:30 PM HOLLOW HANDLE BENCH WORKER [facility] EPI/HPF 0-3 /HPF 01/18/2025 3:30 PM HOLLOW HANDLE BENCH WORKER [facility] BACTERIA (U) NONE SEEN NONE SEEN 01/18/2025 3:30 PM HOLLOW HANDLE BENCH WORKER [facility] URINE SPECIMEN OBTAINED BY CLEAN CATCH PROCEDURE / Unknown 01/18/2025 9:51 AM HOLLOW HANDLE BENCH WORKER [place] Julieta Mccray NP URINE ORDERABLES Final Resu lt [facility] [place] [address] [address], [place] [phone] from Last [address] [facility] Care Teams Engineering Patternmaker Relationship Specialty Start Date End Date Julieta Mccray, MELANIA [address] [place] [address] PCP - General NURSE PRACTITIONER 01/09/25
[2025-03-07 08:09] LABS: Alanine Aminotransferase 52 U/L (6-50); Albumin Level 4.3 g/dL (3.5-5.1); Alkaline Phosphatase 71 U/L (38-126); Anion Gap 9 mmol/L (4-12); Aspartate Amino Transferase 39 U/L (17-59); Bilirubin,Total 0.7 mg/dL (0.2-1.3); Blood Urea Nitrogen 18 mg/dL (9-20); Calcium 8.8 mg/dL (8.4-10.2); Carbon Dioxide 26 mmol/L (22-30); Chloride 103 mmol/L (98-107); Estimated CRCL calculation 123 ml/min; Estimated Glomerular Filt Rate > 60; Glucose 107 mg/dL (65-110); Potassium 4.2 mmol/L (3.4-5.0); Sodium 138 mmol/L (137-145)
--- NOTE | 2025-03-07 08:13 | ED_ITS ---
HPI - Syncope General Chief Complaint: Syncope Stated Complaint: neck pain, headache Time Seen by Provider: 03/07/25 07:37 Source: patient and family (Mother) Mode of arrival: ambulatory Limitations: no limitations History of Present Illness HPI narrative: Patient presents with report of right-sided neck pain that started 03/03/2025. He has also had a headache this started on the top of his head and then seemed to settle into his bilateral neck. He states this headache seems to be constant and associated with nausea and emesis. He had a low-grade temperature with maximum 99.8 with states he woke up in a sweat. He finds the neck pain to be most troublesome and he thought it was due to his sleep posture and has been trying neck pillow was as well as a tablet of ibuprofen 3-5 times throughout the day. He has himself or in because while he was cleaning his CPAP machine he thought it looked a bit discolored and admits he has not been cleaning it weekly like he should. Otherwise his headache seems similar to past headaches. He denies any trauma or anticoagulation. He has feeling dizzy. He states his headache is associated with mild photophobia. Had initially had phonophobia but not currently. His mother had also not been feeling well recently but the brother who also lives in the house has not had any symptoms and they do endorse having a carbon monoxide detector that they recently replaced. He states he has also had chest pain that radiates to his arm and feels like there may be a component of anxiety as he is currently being monitored for blood pressure issues. He did not feel short of breath at the time of the syncopal episode. No history of CHF. He had a spot in his vision at one point. Today he was downstairs and after walking up flight of stairs he had a syncopal episode in which he was out for a few (approximately 10) seconds as witnessed by his mother. He notes that he had a premonition that he thought he was about to pass out. Related Data Home Medications ?Medication ?Instructions ?Recorded ?Confirmed ?Last Taken ?Type omeprazole 20 mg capsule,delayed 20 mg PO BID 01/13/22 03/07/25 03/06/25 History release cetirizine 10 mg tablet (24Hour 10 mg PO DAILY 11/11/24 03/07/25 03/06/25 History Allergy) fluoxetine 20 mg capsule 20 mg PO QPM 01/23/25 03/07/25 03/05/25 History Allergies Allergy/AdvReac Type Severity Reaction Status Date / Time No Known Allergies Allergy Verified 03/07/25 07:36 [facility] Past Medical History Medical History (Updated 03/08/25 @ 09:18 by Ivania Leavitt MD) MAU on CPAP Anxiety Sleep apnea Depression Family History Family History Father Hypertension Family history of cardiovascular disease Mother Family history of elevated blood lipids Social History Social History Smoking status: Never smoker Second hand tobacco smoke exposure: No Alcohol intake: never Substance use: never Substance use type: does not use Occupation/Education: occupation 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 HEAD: Normocephalic, atraumatic. EYES: Non injected, non icteric ENT: Nares clear, no rhinorrhea or epistaxis. NECK: Supple. No meningismus. Patient has full range of motion demonstrates flexion extension as as rotational/side to side motion multiple times during examination. CHEST: Speaking in full sentences. No respiratory distress. HEART: Regular rate and rhythm. . ABDOMEN: Soft, nondistended. EXTREMITIES: Normal range of motion. No lower extremity edema. SKIN: Warm, dry, no rash. NEURO: No focal deficits. Alert and oriented x3. No abnormal movements appreciated. Moves all extremities x4. No marked facial asymmetry. PSYCH: Congruent mood and affect. Loquacious. Course Vital Signs Vital signs: Vital Signs Temperature 98.3 F 03/07/25 07:20 Pulse Rate 86 03/07/25 07:20 Respiratory Rate 24 H 03/07/25 07:20 Blood Pressure 151/92 H 03/07/25 07:20 Pulse Oximetry 100 03/07/25 07:20 Oxygen Delivery Room Air 03/07/25 07:20 Temperature 97.9 F 03/07/25 12:11 Pulse Rate 74 03/07/25 12:11 Respiratory Rate 16 03/07/25 12:11 Blood Pressure 135/89 03/07/25 12:11 Pulse Oximetry 98 03/07/25 12:11 Oxygen Delivery Room Air 03/07/25 07:20 MDM - Syncope MDM Narrative Medical decision making narrative: Patient presents with right-sided neck pain, a headache as well as an episode of syncope today. In the emergency department he is afebrile with vital signs notable for hypertension and tachypnea. After obtaining the patient's history and performing a physical exam, the headache is most likely due to benign etiology. The neurological examination is non-focal, there are no high-risk features on history, vital signs are stable, and the patient is non-toxic appearing. The Ddx for the patient's headache is tension headache, migraine, or other headache of non-emergent etiology. Unlikely SAH: headache is non-thunderclap. Headache is similar to headaches in the past. Unlikely subdural/epidural hematoma: no history of trauma, no anticoagulation Unlikely bacterial meningitis: afebrile, no meningismus, mild photophobia. Considered possible viral meningitis and we discussed this but the neck pain is not posterior/midline and seems more musculoskeletal versus due to tension headache. Unlikely temporal arteritis: pt <60 years old. No tenderness in temporal area Unlikely carbon monoxide poisonin other house member with similar symptoms but the other unaffected and confirm having working smoke detectors. Nevertheless, patient does have an elevated D-dimer in since proceeding with CT PE study imaging, will include head CT imaging out of an abundance of precautions. Mild elevation in ALT isolated. In regards to his SYncope, affected it was preceded by him going upstairs but without chest pain or shortness of breath points to orthostatic versus vasovagal rather than intrinsically cardiac. [place] Syncope Rule: Congestive heart failure history: 0 Hematocrit <30%: 0 EKG abnormal (changed or any non-sinus rhythm): 0 SOB symptoms: 0 SBP <90mmHg at triage: 0 Otherwise low risk The patient's headache was treated symptomatically with ketorolac, benadryl, compazine. Upon reevaluation, He states he continues to feel little upset to his stomach. Will give ondansetron. His headache is resolved. He still has bit of pain in his neck but has full range of motion. Will give 1 time dose of dexamethasone been shown to reduce the occurrence of bounce-back/rebound headache. Discharged with strict return precautions and instructions to follow up with their PCP. He is prescribed [id number] analgesic medication and we did discuss appropriate dosing given that he had only been taking one 200mg tablet of ibuprofen 3 (to maximum 5) times per day and this would be underdosing for his age/weight. Verifies understanding. Patient and mother in agreement. Stable for discharge Differential Diagnosis Differential diagnosis: Likely syncope due to orthostatic hypotension, vasovagal syncope, complete atrioventricular block, subarachnoid hemorrhage, pulmonary embolism and dehydration Lab Data Attestation: I reviewed the patient's lab results. 03/07/25 07:46 03/07/25 07:46 Labs: Lab Results 03/07/25 03/07/25 03/07/25 Range/Units 07:45 07:46 08:39 WBC 7.3 (4.5-10.0) K/mm3 RBC 5.02 (4.6-6.20) M/mm3 Hgb 14.3 (14.0-18.0) g/dL Hct 42.4 (42.0-52.0) % MCV 84.5 (80-100) fl MCH 28.5 (26-34) pg MCHC 33.7 (32-36) g/dl RDW 12.6 (11.5-14.5) % Plt Count 165 (150-375) k/mm3 MPV 10.2 (7.4-10.4) fl Immature Gran % (Auto) 0.1 (0-0.5) % Neut % (Auto) 58.5 (45.5-73.1) % Lymph % (Auto) 24.8 (18.3-44.2) % Mckenzie % (Auto) 14.9 H (2.6-8.5) % Eos % (Auto) 1.0 (0-4.4) % Baso % (Auto) 0.7 (0.2-1.2) % Lymph # (Auto) 1.82 (0.9-3.2) K/mm3 Mckenzie # (Auto) 1.1 H (0.1-0.6) K/mm3 Eos # (Auto) 0.1 (0-0.3) K/mm3 Baso # (Auto) 0.1 (0.0-0.1) K/mm3 Abs Immat Gran (auto) 0.01 (0.00-0.031) K/mm3 Absolute Neuts (auto) 4.3 (1.3-6.7) K/mm3 Absolute Nucleated RBC 0.000 (0.0-0.012) K/mm3 Nucleated RBC % 0.0 (0.0-0.2) % D-Dimer 1.32 H (<0.48) ug/mL Sodium 138 (137-145) mmol/L Potassium 4.2 (3.4-5.0) mmol/L Chloride 103 (98-107) mmol/L Carbon Dioxide 26 (22-30) mmol/L Anion Gap 9 (4-12) mmol/L BUN 18 (9-20) mg/dL Creatinine 1.07 (0.7-1.3) mg/dL Estim Creat Clear Calc 123 ml/min Estimated GFR > 60 (59 - ) Glucose 107 (65-110) mg/dL Calcium 8.8 (8.4-10.2) mg/dL Total Bilirubin 0.7 (0.2-1.3) mg/dL AST 39 (17-59) U/L ALT 52 H (6-50) U/L Alkaline Phosphatase 71 (38-126) U/L Total Protein 7.0 (6.3-8.2) g/dL Albumin 4.3 (3.5-5.1) g/dL Influenza A (RT-PCR) Negative (Negative) Influenza B (RT-PCR) Negative (Negative) RSV (RT-PCR) Negative (Negative) SARS-CoV-2 RNA (RT-PCR) Negative (Negative) Imaging Data Radiologist's impression: Impression: No fracture or subluxation of the cervical spine. Impression: No significant abnormality seen. Impressions Chest CTA 03/07/25 10:05 IMPRESSION: 1. No pulmonary embolism or other acute cardiopulmonary disease. 2. Small sliding-type hiatal hernia. 2. Mild nonspecific splenomegaly which may be related to body habitus. ECG Data EKG #1: Attestation: I personally reviewed and interpreted this ECG as follows: ECG completion date: 03/07/25 ECG completion time: 07:35 Interpretation: Normal sinus rhythm at a rate of 90 beats per minute. [place] interval 171. QRS 91. QT/QTC 318/366. Good R-wave progression across the precordial leads. T-wave inversion in 3 but otherwise upright in normal in contiguous inferior leads 2 and AVF. No other T-wave inversions Discharge Plan Discharge Clinical Impression: Syncope, Neck pain, Cephalgia, Hiatal hernia Patient Disposition: Home Condition: Stable Instructions: Antibiotic Form, Hiatal Hernia (DC), Syncope (DC), General Headache (ED), Acute Neck Pain (ED) Additional Instructions: As we discussed, the cause of your symptoms is unclear. Your workup did not show any abnormalities in your labs, EKG, and imaging which included CT C-spine, CT brain, and CTA chest. Keep your appointment with your primary care physician that is already scheduled for tomorrow. Return to the emergency department with any new or worsening symptoms. Acetaminophen/Tylenol (maximum 4000 mg per day) is safe to take with NSAIDs (ibuprofen/Motrin) for pain relief. Return to the emergency department with any new worsening or unmanaged symptoms Patient Language: Nepalese Prescriptions: New ibuprofen 600 mg tablet 600 mg PO TID PRN (Reason: pain) Qty: 30 0RF acetaminophen 500 mg capsule 1,000 mg PO Q6H PRN (Reason: pain) Qty: 30 0RF No Action cetirizine [24Hour Allergy] 10 mg tablet 10 mg PO DAILY fluoxetine 20 mg capsule 20 mg PO QPM Patient Comments: Pt states he is now taking this medication every other day and that he is weening himself off it omeprazole 20 mg capsule,delayed release(DR/EC) 20 mg PO BID amlodipine [Norvasc] 5 mg tablet 5 mg PO DAILY Qty: 90 0RF Follow-up/Referrals: Shazia,Julieta Bernard APRN [Primary Care Provider] - Stand Alone Forms: Work/School Release IP Time of Disposition: 11:41
--- NOTE | 2025-03-07 08:45 | PC.NURSE ---
This RN called lab and added on additional lab work
[2025-03-07 09:06] LABS: D Dimer 1.32 ug/mL (<0.48)
[2025-03-07] MEDS: PROCHLORPERAZINE EDISYLATE 10 MG/2 ML VIAL IV PUSH (09:14)
[2025-03-07] MEDS: diphenhydrAMINE HCl INJ 50 MG/ML VIAL 25 MG IV PUSH (09:14)
[2025-03-07] MEDS: SODIUM CHLORIDE 0.9% IV 1,000 ML 999 ML IV CONT (09:14)
[2025-03-07] MEDS: KETOROLAC 15 MG/ML VIAL (*BKC) IV PUSH (09:14)
[2025-03-07 09:19] LABS: Influenza A QL RT-PCR Negative (Negative); Influenza B QL RT-PCR Negative (Negative); RSV RNA, RT-PCR Negative (Negative); SARS-CoV-2 RNA PCR Negative (Negative)
[2025-03-07] MEDS: ACETAMINOPHEN 500 MG TABLET 1000 MG PO (11:17)
[2025-03-07] MEDS: dexAMETHasone 2 MG TABLET 10 MG PO (11:53)
[2025-03-07] MEDS: ONDANSETRON INJ 4 MG/2 ML VIAL IV PUSH (11:53)
== END 2025-03-07 12:12 | disposition home or self-care (01) ==
PROVIDERS: Emergency Provider Student in an Organized Health Care Education/Training Program; PCP Nurse Practitioner
DX: R55 Syncope and collapse (principal); M54.2 Cervicalgia; R51.9 Headache, unspecified; K44.9 Diaphragmatic hernia without obstruction or gangrene; Z20.822 Contact with and (suspected) exposure to COVID-19; G47.30 Sleep apnea, unspecified; F41.9 Anxiety disorder, unspecified; F32.A Depression, unspecified
CPT/HCPCS: 36415; 70450; 71046; 71275; 72125; 80053; 85025; 85380; 87637; 93005; 96361; 96374; 96375; 99284; A9270; J0780; J1200; J1885; J2405; J7030; J8540; Q9967